=== PATIENT | male | born 1950 | race Two or more races ===

== ENCOUNTER → 2020-07-28 | Outpatient (CLI) | payer OTHER ==
[~2020-07-28] MED LIST: AMLODIPINE BESYL5 MG; BENAZEPRIL HCL20 MG; ECOTRIN325 MG; FENOFIBRATE160 MG; GLUCOPHAGE XR500 MG; PLAVIX75 MG
== END | disposition home or self-care (01) ==
LOC: OFIC 805 09:45
PROVIDERS: ATTEND Otolaryngology
DX: R22.9 Localized swelling, mass and lump, unspecified (principal); J03.80 Acute tonsillitis due to other specified organisms

== ENCOUNTER 2023-10-30 08:26 | Outpatient (CLI) | payer OTHER | END 2023-10-30 08:30 | disposition home or self-care (01) | LOC: TOM 08:26 | DX: R19.5 Other fecal abnormalities (principal); Z80.0 Family history of malignant neoplasm of digestive organs ==